=== PATIENT | female | born 1955 | race Caucasian/White ===

== ENCOUNTER 2021-02-12 09:19 | Emergency (ER) | payer MEDICARE ==
[2021-02-12] MEDS ORDERED: Eye-Stream Solution ONE (09:55)
[2021-02-12] MEDS ORDERED: TETRACAINE 0.5% STERI-UNIT SOL OP ONE (09:55)
[2021-02-12] MEDS ORDERED: Fluor-I-Strip/Ful-Flo OP ONE (09:55)
[2021-02-12] MEDS ORDERED: Eye-Stream Solution OP ONE (10:00)
[2021-02-12] MEDS ORDERED: TETRACAINE 0.5% STERI-UNIT SOL OP STA (10:00)
--- NOTE | 2021-02-12 10:20 | XRAY ---
Indication: Frontal headache and left eye pressure/lower division. Multiple contiguous axial images obtained through the head without contrast. Comparison: None Age-appropriate global atrophy and minimal periventricular degenerative micro-ischemia. No acute intracranial hemorrhage, abnormal extra-axial fluid collection, or mass effect. Fourth ventricle is midline. Terrazas-white matter differentiation preserved. Bony calvarium intact. Visualized paranasal sinuses and mastoid air cells are clear. Impression: Nonacute senile brain.
--- NOTE | 2021-02-12 10:46 | ERPHSYRPT ---
- History of Present Illness Source: patient Patient Subjective Stated Complaint: Left eye pain Triage Nursing Assessment: Patient ambulated back to ED and transferred self to bed. Patient A+O x3. Patient's skin pink, warm and dry. Patient complains of left eye pain upon waking up. Patient states her left eye is constantly throbbing pressure 3/10. Patient complains of blurred vision. Patient also complains of pain to forehead when raising her head. Left eye noted to be red. Physician History: 65 yo wf w L ocular pain upon waking up this AM. Pt denies trauma/visual impairment. She states that the pain is worse w L eye movement. Eye is mildly erythematous. She states that the eye has been "watering slightly", but she has been crying. Pt wears glasses. Timing/Duration: today Location: left eye Severity: mild Apparent Injury: no Associated Symptoms: pain, redness, eyelid swelling Visual Assistive Devices: Glasses Allergies/Adverse Reactions: codeine Allergy (Verified 02/12/21 09:29) Hx Influenza Vaccination/Date Given: Yes Hx Pneumococcal Vaccination/Date Given: No Immunizations Up to Date: Yes Travel Risk - International Travel Have you traveled outside of the country in past 3 weeks: No - Coronavirus Screening Are you exhibiting any of the following symptoms?: No Close contact with a COVID-19 positive Pt in past 14-21 Days: No - Vaccine Status Have you recieved a Covid-19 vaccination: Yes Clinical Nutritionist: Moderna - Vaccination Dates Date of 2cond Vaccination (if applicable): May 2020 - Review of Systems Constitutional: No Symptoms Ears, Nose, & Throat: No Symptoms Respiratory: No Symptoms Cardiac: No Symptoms Abdominal/Gastrointestinal: No Symptoms Genitourinary Symptoms: No Symptoms Musculoskeletal: No Symptoms Skin: No Symptoms Neurological: No Symptoms Psychological: No Symptoms Endocrine: No Symptoms Hematologic/Lymphatic: No Symptoms Immunological/Allergic: No Symptoms - Past Medical History Pertinent Past Medical History: Yes Neurological History: No Pertinent History ENT History: No Pertinent History Cardiac History: High Cholesterol, Hypertension Respiratory History: No Pertinent History Endocrine Medical History: No Pertinent History Musculoskeletal History: No Pertinent History GI Medical History: No Pertinent History History: No Pertinent History Psycho-Social History: Anxiety, Depression Female Reproductive Disorders: No Pertinent History - Past Surgical History Past Surgical History: No Neuro Surgical History: No Pertinent History Cardiac: No Pertinent History Respiratory: No Pertinent History Gastrointestinal: No Pertinent History Genitourinary: No Pertinent History Musculoskeletal: No Pertinent History Female Surgical History: No Pertinent History - Social History Smoking Status: Never smoker Exposure to second hand smoke: No Drug Use: none Patient Lives Alone: No Significant Family History: no pertinent family hx - Female History Hx Now: No - Nursing Vital Signs Nursing Vital Signs: Initial Vital Signs Temperature 97.0 F 02/12/21 09:31 Pulse Rate 53 L 02/12/21 09:31 Respiratory Rate 18 02/12/21 09:31 Blood Pressure 172/96 02/12/21 09:31 O2 Sat by Pulse Oximetry 97 02/12/21 09:31 Pain Scale Pain Intensity 3 Hypertensive - Physical Exam Vision Acuity Degree Evaluation Phase: Corrected Vision Acuity Right Eye: 20/50 Vision Acuity Left Eye: 20/50 Intraocular Pressure (Tonopen): both eyes (R eye 28-32/L eye 18-22) Eye Exam: right eye: normal inspection, left eye: erythema (Mild L), eyelid inflammation (Mild L), bilateral eye: PERRL, EOMI Ears, Nose, Throat Exam: normal ENT inspection, TMs normal, pharynx normal, moist mucous membranes Neck Exam: normal inspection, non-tender, supple, full range of motion, No meningismus, No mass, No Brudzinski, No Kernig's, No carotid bruit Respiratory Exam: normal breath sounds, lungs clear, airway intact Cardiovascular Exam: regular rate/rhythm, normal heart sounds, normal peripheral pulses, No murmur Gastrointestinal Exam: soft Extremity Exam: normal inspection, normal range of motion Neurologic: alert, oriented x 3, cooperative, normal mood/affect, sensation nml, No motor deficits, No sensory deficit Skin Exam: normal color Lymphatic: No adenopathy SpO2 Interpretation: normal SpO2: 97 O2 Delivery: Room Air Procedures - Eye Procedure Tetracaine Drops Administered: Yes Eye FB Removal: no removal w/ cotton swab, no removal w/ needle - Intraocular Pressure by Tonopen Intraocular Pressure-Right Eye (mm Hg): 28-32 Intraocular Pressure-Left Eye (mm Hg): 18-22 - CT Exams Head CT Interpretation: Discussed w/radiologist (NAD) Ordered Tests: Active Orders 24 hr Category Date Time Status HEAD WITHOUT CONTRAST [CT] Stat Exams 02/12/21 10:02 Completed Medication Summary Discontinued Medications Generic Name Dose Route Start Last Admin Trade Name Jeannine PRN Reason Stop Dose Admin Eye Irrigation Solution Confirm 02/12/21 09:55 Sodium/Potassium/Yuan/Magnesium 30 Ml Eye Wash Administered 02/12/21 09:56 Dose 30 ml .ROUTE .STK-MED ONE Fluorescein Sodium Confirm 02/12/21 09:55 Fluorescein Sodium 1 Mg/Strip Strip Administered 02/12/21 09:56 Dose 1 mg OP .STK-MED ONE Tetracaine HCl Confirm 02/12/21 09:55 Tetracaine Hcl/Pf 4 Ml Bottle Administered 02/12/21 09:56 Dose 4 ml OP .STK-MED ONE - Progress Progress Note: 02/12/21 11:04 BP decreased during stay Pt wo focal weakness 02/12/21 21:[address] Rooney 02/15/21 at 17:00 Counseled pt/family regarding: diagnosis, need for follow-up, rad results - Departure Departure Disposition: Home Clinical Impression: Ocular pain, left eye Condition: Stable Critical Care Time: No Referrals: DOCTOR,NO FAMILY [Primary Care Provider] - Additional Instructions: Follow up with Dr. Rooney on 02/15/21 5:00PM Ciloxin 2 drops left eye every 4 hours for 5 days Return to ER for increasing pain Prescriptions: Ciprofloxacin HCl [Ciloxan] 2 drops OP Q4H #2.5 ml
[2021-02-12 11:27] VITALS: BP 106/63; PULSE 68
[2021-02-12 21:04] VITALS: O2SAT 97
== END 2021-02-12 11:26 | disposition home or self-care (01) ==
LOC: ED 09:19
DX: H57.12 Ocular pain, left eye (principal)
CPT/HCPCS: 70450; 99283; A9270-GY

== ENCOUNTER 2024-01-18 13:03 | Emergency (ER) | payer MEDICARE ==
--- NOTE | 2024-01-18 13:09 | ERPHSYRPT ---
- History of Present Illness Time Seen by Provider: 01/18/24 13:08 Source: patient, EMS Exam Limitations: no limitations Physician History: This is a 68-year-old white female patient who arrives by private vehicle and was traveling in [place] and on her way home from [place] there was some type of escalator that was crowded and there was a lot of pushing and this patient actually fell backwards on the escalator hitting her head. Again, this occurred 2 days ago. She did not lose consciousness. She does have bruising to her scalp without lacerations. She has generalized mild aches and pains with a few sites on her bilateral upper extremities bruising and the right flank bruising. She has no chest pain. She has no shortness of breath. She has no abdominal pain. She has not used Tylenol or ibuprofen. She states her pain is not that bad. She only wanted to have a CAT scan of her head performed because she does feel a little bit as though she is in a fog. Patient is not on any anticoagulation therapy. She does have a history of anxiety/depression, hypothyroidism and hyperlipidemia. Patient has no neck pain and has no vertebral pain on her spine. She is moving all her extremities Occurred: days ago (2) Reason for Fall: fell from standing pos Injuries/Pain Location: head, upper extremity Loss of Consciousness: no loss of consciousness Severity of Pain-Max: mild Severity of Pain-Current: mild Associated Symptoms (Fall): other (This is though she is in a mild fog), No abdominal pain, No back pain, No chest pain, No neck pain, No seizures, No shortness of breath, No slurred speech, No trouble walking, No vomiting Allergies/Adverse Reactions: codeine Allergy (Verified 02/12/21 09:29) Home Medications: Citalopram Hydrobromide [Celexa] 40 mg PO DAILY 01/18/24 [History] Levothyroxine Sodium [Levoxyl] 125 mcg PO DAILY 01/18/24 [History] Simvastatin 20Mg [Zocor 20Mg] 20 mg PO DAILY 01/18/24 [History] clonazePAM [Clonazepam] 0.5 mg PO DAILY 01/18/24 [History] Hx Influenza Vaccination/Date Given: Yes Hx Pneumococcal Vaccination/Date Given: No Travel Risk - International Travel Have you traveled outside of the country in past 3 weeks: No - Emerging Infectious Disease Are you exhibiting symptoms associated with any current EIDs: No - Review of Systems Constitutional: No Symptoms Eyes: No Symptoms Ears, Nose, & Throat: No Symptoms Respiratory: No Symptoms Cardiac: No Symptoms Abdominal/Gastrointestinal: No Symptoms Genitourinary Symptoms: No Symptoms Musculoskeletal: Fall Skin: Other (Ecchymosis left upper extremity and right lower back area) Neurological: Other (No significant headache. Feels as though she is in a fog), No Dizziness Psychological: No Symptoms Endocrine: No Symptoms Hematologic/Lymphatic: No Symptoms Immunological/Allergic: No Symptoms All Other Systems: Reviewed and Negative - Past Medical History Pertinent Past Medical History: Yes Neurological History: No Pertinent History ENT History: No Pertinent History Cardiac History: High Cholesterol, Hypertension Respiratory History: No Pertinent History Endocrine Medical History: No Pertinent History Musculoskeletal History: No Pertinent History GI Medical History: No Pertinent History History: No Pertinent History Psycho-Social History: Anxiety, Depression Female Reproductive Disorders: No Pertinent History - Past Surgical History Past Surgical History: No Neuro Surgical History: No Pertinent History Cardiac: No Pertinent History Respiratory: No Pertinent History Gastrointestinal: No Pertinent History Genitourinary: No Pertinent History Musculoskeletal: No Pertinent History Female Surgical History: No Pertinent History Significant Family History: no pertinent family hx - Social History Smoking Status: Never smoker Exposure to second hand smoke: No Drug Use: none Patient Lives Alone: No - Nursing Vital Signs Nursing Vital Signs: Initial Vital Signs Temperature 98.2 F 01/18/24 13:12 Pulse Rate 56 L 01/18/24 13:12 Respiratory Rate 18 01/18/24 13:12 Blood Pressure 140/66 01/18/24 13:12 O2 Sat by Pulse Oximetry 99 01/18/24 13:12 Pain Scale Pain Intensity 0 - Elda Coma Score Best Eye Response (Elda): (4) open spontaneously Best Verbal Response (Elda): (5) oriented Best Motor Response ([place]): (6) obeys commands Elda Total: 15 - Physical Exam General Appearance: no apparent distress, alert, anxiety Head Injury: contusions (Multiple sites of tenderness on the patient's scalp without lacerations) Eye Exam: PERRL/EOMI, eyes nml inspection ENT Exam: airway nml, nml ext.inspection, No evidence of ENT injury, No dental injury Neck Exam: supple, trachea midline, full range of motion, normal alignment, normal inspection, No pain on movement of neck Respiratory/Chest Exam: normal breath sounds, No chest tenderness, No respiratory distress, No ecchymosis, No crepitus Cardiovascular Exam: normal heart sounds, regular rate/rhythm Gastrointestinal Exam: soft, normal bowel sounds, No tenderness Rectal Exam: not done Back Exam: other (Mild right skin lower ecchymosis. Lower than flank), No CVA tenderness, No vertebral tenderness Extremity Exam: normal range of motion, other (Ecchymosis volar aspect left forearm), No tenderness Neurologic Exam: alert, oriented x 3, cooperative, keycase assembler II-XII nml as tested, normal mood/affect, nml cerebellar function, nml station & gait, sensation nml Skin Exam: ecchymosis (See above description) SpO2 Interpretation: normal O2 Delivery: Room Air - Course Nursing assessment & vital signs reviewed: Yes Ordered Tests: Active Orders 24 hr Category Date Time Status HEAD WITHOUT CONTRAST [CT] Stat Exams 01/18/24 13:24 Completed - Progress Progress: unchanged Progress Note: 01/18/24 14:26 My medical decision making and the assignment of low complexity to this patient's medical issue today is based on review of the patient's past medical history, review the patient's medication list, review the patient drug allergy list, history present illness and physical findings on examination. The workup in this patient includes CT scan of the head without contrast. The patient is r efusing any other type of radiographic studies. She was asked several times. 01/18/24 14:[address] scan of the head without contrast was interpreted by the radiologist and I reviewed the impression. The impression states continued nonacute senile brain without contrast. Counseled pt/family regarding: diagnosis, need for follow-up, rad results Medical Desision Making - Diagnostic Testing Diagnostic test were ordered, analyzed, and reviewed by me: Yes Radiological Interpretation: Reviewed by me, Teleradiologist Report - Risk of complications Low Risk: Low risk of morbidity from additional dx testing or treatment - Departure Departure Disposition: Home Clinical Impression: Head injury Condition: Stable Critical Care Time: No Referrals: FLAVIA HARTMAN [Primary Care Provider] - Follow up/PCP as directed Additional Instructions: Drink plenty of fluids. Avoid any blood thinning medication. Avoid sedating medication for 24 hours. If there are no contraindications, use Tylenol and ibuprofen for pain control. Call your primary care provider tomorrow, 01/19/2024, to make arrangements for follow-up appointment for further evaluation management.
[2024-01-18 13:18] VITALS: RESP 18; TEMP 98.2
--- NOTE | 2024-01-18 14:23 | XRAY ---
Indication: Status post fall. Head injury. Altered mental status. Multiple contiguous axial images obtained through the head without contrast. Comparison: February 12, 2021 Again age-appropriate global atrophy and minimal periventricular degenerative micro-ischemia bilaterally. No acute intracranial hemorrhage, abnormal extra-axial fluid collection, or mass effect. Fourth ventricle is midline without hydrocephalus. Terrazas-white matter differentiation preserved. Bony calvarium intact. Visualized paranasal sinuses and mastoid air cells are clear. Impression: Continued nonacute senile brain.
[2024-01-18 14:39] VITALS: BP 112/43; PULSE 49; O2SAT 98
== END 2024-01-18 14:57 | disposition home or self-care (01) ==
LOC: ED 13:03
DX: S09.90XA Unspecified injury of head, initial encounter (principal); W10.0XXA Fall (on)(from) escalator, initial encounter; E78.5 Hyperlipidemia, unspecified; I10 Essential (primary) hypertension; Z79.899 Other long term (current) drug therapy
CPT/HCPCS: 70450; 99283

== ENCOUNTER 2025-01-17 11:39 | Emergency (ER) | payer MEDICARE ==
[2025-01-17 11:50] VITALS: TEMP 95.4
--- NOTE | 2025-01-17 12:08 | ERPHSYRPT ---
- History of Present Illness Patient Subjective Stated Complaint: weakness, nausea, and dizzyness Triage Nursing Assessment: Patient was brought into the ED by her , she says shes been having nausea, dizzyness and weakness. She is alert and oriented x4, able to ambualte by self with assistance. skin warm dry and intact. Lung sounds clear, pulses equal bilateral radius. she says shes been extremely nausea and weak and at times gets short of breath for a few days now. Physician History: Transported via EMS from home, patient been sick over the last several days, she had nausea and vomiting and abdominal cramping, she has not any exposure to anyone else was been ill Timing/Duration: day(s) (2) Quality: cramping Abdominal Pain Onset Location: generalized abdomen Pain Radiation: no radiation Severity of Pain-Max: moderate Severity of Pain-Current: moderate Modifying Factors: Improves With: nothing Associated Symptoms: nausea, shortness of breath, vomiting Allergies/Adverse Reactions: codeine Allergy (Verified 01/17/25 11:59) Home Medications: Citalopram Hydrobromide [Celexa] 40 mg PO DAILY 01/18/24 [History] Levothyroxine Sodium [Levoxyl] 125 mcg PO DAILY 01/18/24 [History] Simvastatin 20Mg [Zocor 20Mg] 20 mg PO DAILY 01/18/24 [History] clonazePAM [Clonazepam] 0.5 mg PO DAILY 01/18/24 [History] Hx Tetanus, Diphtheria Vaccination/Date Given: No Hx Influenza Vaccination/Date Given: Yes Hx Pneumococcal Vaccination/Date Given: No Immunizations Up to Date: Yes Travel Risk - International Travel Have you traveled outside of the country in past 3 weeks: No - Emerging Infectious Disease Are you exhibiting symptoms associated with any current EIDs: No - Past Medical History Pertinent Past Medical History: Yes Neurological History: No Pertinent History ENT History: No Pertinent History Cardiac History: High Cholesterol, Hypertension Respiratory History: No Pertinent History Endocrine Medical History: No Pertinent History Musculoskeletal History: No Pertinent History GI Medical History: No Pertinent History History: No Pertinent History Psycho-Social History: Anxiety, Depression Female Reproductive Disorders: No Pertinent History - Past Surgical History Past Surgical History: No Neuro Surgical History: No Pertinent History Cardiac: No Pertinent History Respiratory: No Pertinent History Gastrointestinal: No Pertinent History Genitourinary: No Pertinent History Musculoskeletal: No Pertinent History Female Surgical History: No Pertinent History Significant Family History: no pertinent family hx - Social History Smoking Status: Never smoker Exposure to second hand smoke: No Drug Use: none - Social Determinants of Health Will the patient participate in the screening: Yes Do you worry about a steady place to live?: No Do you have any problems with any of the following?: No known problems In the past 12 months,have you had to go without utilities?: No Transportation Issues: No Has anyone in your support network made you feel unsafe?: No Have you or anyone in your house had to go w/o enough food: No - Nursing Vital Signs Nursing Vital Signs: Initial Vital Signs O2 Sat by Pulse Oximetry 99 01/17/25 11:47 Pain Scale Pain Intensity 0 - Physical Exam General Appearance: no apparent distress, alert Eye Exam: PERRL/EOMI, eyes nml inspection Ears, Nose, Throat Exam: normal ENT inspection, pharynx normal, moist mucous membranes Neck Exam: normal inspection, non-tender, supple, full range of motion Respiratory Exam: normal breath sounds, chest tenderness, lungs clear Cardiovascular Exam: regular rate/rhythm, normal heart sounds Gastrointestinal/Abdomen Exam: soft, normal bowel sounds Back Exam: normal inspection, normal range of motion Extremity Exam: normal inspection, normal range of motion Neurologic Exam: alert, oriented x 3, cooperative, email marketing manager II-XII nml as tested, normal mood/affect Skin Exam: normal color, warm, dry SpO2 Interpretation: normal SpO2: 99 Ordered Tests: Active Orders 24 hr Category Date Time Status EKG-ER Only STAT Care 01/17/25 11:59 Active IV Insertion STAT Care 01/17/25 11:59 Active ABDOMEN AND PELVIS W CONTRAST [CT] Stat Exams 01/17/25 13:43 Completed CHEST 1 VIEW (PORTABLE) Stat Exams 01/17/25 12:03 Completed CBC W DIFF Stat Lab 01/17/25 12:00 Completed CMP Stat Lab 01/17/25 12:00 Completed CULTURE,URINE Stat Lab 01/17/25 16:22 Received Lactic Acid Stat Lab 01/17/25 12:14 Completed Lactic Acid Stat Lab 01/17/25 14:19 Completed UA W/RFX UR CULTURE Stat Lab 01/17/25 16:22 Completed Medication Summary Discontinued Medications Generic Name Dose Route Start Last Admin Trade Name Freq PRN Reason Stop Dose Admin Droperidol 1.25 mg 01/17/25 13:30 01/17/25 13:35 Droperidol 5 Mg/2 Ml Vial IV 01/17/25 13:31 1.25 mg STAT ONE Administration Droperidol Confirm 01/17/25 13:32 Droperidol 5 Mg/2 Ml Vial Administered 01/17/25 13:33 Dose 5 mg .ROUTE .STK-MED ONE Sodium Chloride 1,000 mls @ 999 mls/hr 01/17/25 11:59 01/17/25 13:30 Sodium Chloride 0.9% 1000 Ml IV 01/17/25 12:59 Infused .Q1H1M STA Infusion Sodium Chloride Confirm 01/17/25 12:20 Sodium Chloride 0.9% 1000 Ml Administered 01/17/25 12:21 Dose 1,000 mls @ ud .ROUTE .STK-MED ONE Lorazepam 0.5 mg 01/17/25 16:10 01/17/25 17:29 Lorazepam 2 Mg/1 Ml 2 Mg Vial IV 01/17/25 16:11 0.5 mg STAT ONE Administration Lorazepam 0.5 mg 01/17/25 17:00 01/17/25 17:31 Lorazepam 20 Mg/10 Ml Mdv 2 Mg/Ml For Single Doses IV 01/17/25 17:01 Not Given STAT ONE Lorazepam Confirm 01/17/25 17:27 Lorazepam 20 Mg/10 Ml Mdv 2 Mg/Ml For Single Doses Administered 01/17/25 17:28 Dose 20 mg .ROUTE .STK-MED ONE Midazolam HCl 1 mg 01/17/25 17:26 01/17/25 17:32 Midazolam Hcl 2 Mg/2 Ml Vial IV 01/17/25 17:27 Not Given 1XONLY ONE Prochlorperazine Edisylate 5 mg 01/17/25 11:59 01/17/25 12:23 Prochlorperazine Edisylate 10 Mg/2 Ml Vial IV 01/17/25 12:00 5 mg STAT ONE Administration Prochlorperazine Edisylate Confirm 01/17/25 12:20 Prochlorperazine Edisylate 10 Mg/2 Ml Vial Administered 01/17/25 12:21 Dose 10 mg .ROUTE .STK-MED ONE Lab/Rad Data: Laboratory Result Diagrams 01/17/25 12:00 01/17/25 12:00 Laboratory Results 01/17/25 01/17/25 01/17/25 Range/Units 16:22 14:19 12:14 WBC (3.98-10.04) x10^3/uL RBC (3.93-5.22) x10^6/uL Hgb (11.2-15.7) g/dL Hct (34.1-44.9) % MCV (79.4-94.8) fL MCH (25.6-32.2) pg MCHC (32.2-35.5) g/dL RDW (11.7-14.4) % Plt Count (182-369) x10^3/uL MPV (9.4-12.3) fL Gran % (34.0-71.1) % Immature Gran % (Auto) (0.001-0.429) % Nucleat RBC Rel Count (0.00-0.2) % Eos # (Auto) (0.04-0.36) x10^3/uL Immature Gran # (Auto) (0.001-0.031) x10^3u/L Absolute Lymphs (auto) (1.18-3.74) x10^3/uL Absolute Monos (auto) (0.24-0.86) x10^3/uL Absolute Nucleated RBC (0.00-0.012) x10^3u/L Lymphocytes % (19.3-51.7) % Monocytes % (4.7-12.5) % Eosinophils % (0.7-5.8) % Basophils % (0.1-1.2) % Absolute Granulocytes (1.56-6.13) x10^3/uL Basophils # (0.01-0.08) x10^3/uL Sodium (135-145) mmol/L Potassium (3.5-5.1) mmol/L Chloride (98-107) mmol/L Carbon Dioxide (22-30) mmol/L Anion Gap (5-15) MEQ/L BUN (7-17) mg/dL Creatinine (0.52-1.04) mg/dL Estimated GFR ML/MIN Glucose (74-106) mg/dL Lactic Acid 2.1 H 3.0 H (0.4-2.0) Calcium (8.4-10.2) mg/dL Total Bilirubin (0.2-1.3) mg/dL AST (14-36) U/L ALT (0-35) U/L Alkaline Phosphatase (38-126) U/L Serum Total Protein (6.3-8.2) g/dL Albumin (3.5-5.0) g/dL Urine Color Yellow (Yellow) Urine Appearance Clear (Clear) Urine pH 6.0 (4.6-8.0) Ur Specific Festus >=1.030 A (1.005-1.030) Urine Protein Trace A (Negative) Urine Glucose (UA) Negative (Negative) mg/dL Urine Ketones 15 A (Negative) Urine Blood Small A (Negative) Urine Nitrite Negative (Negative) Urine Bilirubin Negative (Negative) Urine Urobilinogen 1.0 A (0.2) mg/dL Ur Leukocyte Esterase Negative (Negative) U Hyaline Cast (Auto) NONE SEEN (0-2) /LPF Urine Microscopic RBC 6-10 A (0-5) /HPF Urine Microscopic WBC 0-2 (0-5) /HPF Ur Epithelial Cells None Seen (None Seen) /HPF Urine Bacteria None Seen (None Seen) /HPF Urine Culture Reflexed YES (NO) 01/17/25 01/17/25 Range/Units 12:00 12:00 WBC 6.5 (3.98-10.04) x10^3/uL RBC 4.05 (3.93-5.22) x10^6/uL Hgb 12.3 (11.2-15.7) g/dL Hct 37.3 (34.1-44.9) % MCV 92.1 (79.4-94.8) fL MCH 30.4 (25.6-32.2) pg MCHC 33.0 (32.2-35.5) g/dL RDW 14.3 (11.7-14.4) % Plt Count 170 L (182-369) x10^3/uL MPV 10.5 (9.4-12.3) fL Gran % 77.1 H (34.0-71.1) % Immature Gran % (Auto) 0.3 (0.001-0.429) % Nucleat RBC Rel Count 0.0 (0.00-0.2) % Eos # (Auto) 0.03 L (0.04-0.36) x10^3/uL Immature Gran # (Auto) 0.02 (0.001-0.031) x10^3u/L Absolute Lymphs (auto) 1.18 (1.18-3.74) x10^3/uL Absolute Monos (auto) 0.22 L (0.24-0.86) x10^3/uL Absolute Nucleated RBC 0.00 (0.00-0.012) x10^3u/L Lymphocytes % 18.2 L (19.3-51.7) % Monocytes % 3.4 L (4.7-12.5) % Eosinophils % 0.5 L (0.7-5.8) % Basophils % 0.5 (0.1-1.2) % Absolute Granulocytes 5.01 (1.56-6.13) x10^3/uL Basophils # 0.03 (0.01-0.08) x10^3/uL Sodium 140 (135-145) mmol/L Potassium 3.6 (3.5-5.1) mmol/L Chloride 105 (98-107) mmol/L Carbon Dioxide 22 (22-30) mmol/L Anion Gap 16.7 H (5-15) MEQ/L BUN 15 (7-17) mg/dL Creatinine 1.10 H (0.52-1.04) mg/dL Estimated GFR 54.1 ML/MIN Glucose 177 H (74-106) mg/dL Lactic Acid (0.4-2.0) Calcium 9.6 (8.4-10.2) mg/dL Total Bilirubin 0.50 (0.2-1.3) mg/dL AST 29 (14-36) U/L ALT 22 (0-35) U/L Alkaline Phosphatase 99 (38-126) U/L Serum Total Protein 7.5 (6.3-8.2) g/dL Albumin 4.6 (3.5-5.0) g/dL Urine Color (Yellow) Urine Appearance (Clear) Urine pH (4.6-8.0) Ur Specific Festus (1.005-1.030) Urine Protein (Negative) Urine Glucose (UA) (Negative) mg/dL Urine Ketones (Negative) Urine Blood (Negative) Urine Nitrite (Negative) Urine Bilirubin (Negative) Urine Urobilinogen (0.2) mg/dL Ur Leukocyte Esterase (Negative) U Hyaline Cast (Auto) (0-2) /LPF Urine Microscopic RBC (0-5) /HPF Urine Microscopic WBC (0-5) /HPF Ur Epithelial Cells (None Seen) /HPF Urine Bacteria (None Seen) /HPF Urine Culture Reflexed (NO) - Progress Progress: improved Progress Note: 01/17/25 13:44 Persistent vomiting, Chest x-ray reviewed by me had revealed no acute infiltrate, add CT abdomen/pelvis 01/17/25 18:[address] results, patient received Versed, Nausea is resolved clinically she is improved and is requesting discharge, she had several episodes where her oxygen desaturation below 90% but she was sleeping when she was aroused, While awake her oxygenation is in the mid 90s,He was able to get up and walk around without any difficulty, should be discharged. Clinical diet over the next 24 hours, Zofran as an antiemetic - Departure Departure Disposition: Home Clinical Impression: Nausea and vomiting Qualifiers: Vomiting type: unspecified Qualified Code(s): R11.2 - Nausea with vomiting, unspecified Condition: Stable Critical Care Time: No Referrals: SAVANNA CARRERA MD [Primary Care Provider, INTERNAL MEDICINE] - Follow up with PCP 4 days Prescriptions: Ondansetron ODT 4 MG [Zofran Odt 4 mg] 4 mg PO Q6H PRN PRN #10 tablet PRN Reason: Vomiting
[2025-01-17 12:16] LABS: BASOPHIL % 0.5 % (0.1-1.2); Basophil (Absolute #) 0.03 x10^3/uL (0.01-0.08); Eosinophil (Absolute #) 0.03 x10^3/uL (0.04-0.36); Hematocrit 37.3 % (34.1-44.9); Hemoglobin 12.3 g/dL (11.2-15.7); IMMATURE GRAN # 0.02 x10^3u/L (0.001-0.031); IMMATURE GRAN % 0.3 % (0.001-0.429); Lymphocyte (Absolute #) 1.18 x10^3/uL (1.18-3.74); Mean Corpuscular Hemoglobin 30.4 pg (25.6-32.2); Mean Corpuscular Hgb Concent. 33.0 g/dL (32.2-35.5); Monocyte (Absolute #) 0.22 x10^3/uL (0.24-0.86); NUCLEATED RBC # 0.00 x10^3u/L (0.00-0.012); NUCLEATED RBC % 0.0 % (0.00-0.2); Platelet Count 170 x10^3/uL (182-369); Red Blood Count 4.05 x10^6/uL (3.93-5.22); White Blood Count 6.5 x10^3/uL (3.98-10.04)
[2025-01-17] MEDS ORDERED: Compazine 10 MG/2 ML ONE (12:20)
[2025-01-17] MEDS: Compazine 10 MG/2 ML IV ONE (12:23)
[2025-01-17 12:33] LABS: Calcium 9.6 mg/dL (8.4-10.2); Carbon Dioxide 22.0 mmol/L (22-30); Creatinine 1 1.1 mg/dL (0.52-1.04); EST GLOMERULAR FILTRATION RATE 54.1 ML/MIN; Glucose 177.0 mg/dL (74-106); Potassium 3.6 mmol/L (3.5-5.1); SGOT/AST 29.0 U/L (14-36); SGPT/ALT 22.0 U/L (0-35); Total Protein 7.5 g/dL (6.3-8.2)
--- NOTE | 2025-01-17 12:45 | XRAY ---
CLINICAL HISTORY: sob COMPARISON: No prior studies are available for comparison. TECHNIQUE: X-ray images of the chest were obtained in AP projection. FINDINGS: Pulmonary Parenchyma: A reticular pattern is seen in the bilateral lower and left mid lung zones, and may represent interstitial changes. There is some crowding of the ribs on the left side. A round calcified nodule is seen at the right lower lung zone, measuring 6.3 mm. There is no evidence of pleural effusion or pleural thickening. Heart and Mediastinum: The heart size is enlarged. An ectatic aorta is seen, with atherosclerotic calcification. There is no mediastinal widening, and no masses are present. There is no hilar or mediastinal lymphadenopathy. Bony Thorax: The bony thorax appears intact without fractures or deformities. Soft Tissues: The soft tissues overlying the chest wall are unremarkable. IMPRESSION: 1. A reticular pattern is seen in the bilateral lower and left mid lung zones, and may represent interstitial changes. Further clinical evaluation is recommended. 2. There is some crowding of the ribs on the left side. 3. Cardiomegaly is present. 4. A round calcified nodule is seen at the right lower lung zone. Electronically Signed by: Orlando Parnell MD. (01/17/2025 12:43:48 EDT)
[2025-01-17] MEDS ORDERED: Inapsine 5 MG/2 ML ONE (13:32)
[2025-01-17] MEDS: Inapsine 5 MG/2 ML IV ONE (13:35)
--- NOTE | 2025-01-17 16:09 | XRAY ---
CLINICAL HISTORY: abd pain COMPARISON: CR 29- TECHNIQUE: CT of the abdomen and pelvis was performed with contrast using the following protocol: axial images were obtained with reconstructed coronal and sagittal images. One of the following dose-reduction techniques was utilized for this exam: automated exposure control, adjustment of the mA and/or kV according to patient size, and the use of iterative reconstruction. FINDINGS: Abdomen: Liver: The liver is normal in size, shape, and density. No focal lesions, cysts, or masses were identified. Hepatic vasculature and biliary ducts are unremarkable. Gallbladder and Biliary System: Status post cholecystectomy. The common bile duct is normal in caliber without dilation. Pancreas: The pancreatic head, body, and tail are visualized and appear normal in size and density. No pancreatic masses or calcifications were noted. The pancreatic duct is not dilated. Spleen: The spleen is normal in size, shape, and density. There are multiple small scattered calcific foci, likely sequelae of old granulomatous infection. No splenic lesions or masses were identified. Kidneys and Adrenal Glands: Both kidneys are normal in size, shape, and position. There are bilateral small simple renal cortical cysts. Cortical thickness is within normal limits. No renal calculi or hydronephrosis are identified. The adrenal glands are unremarkable, with no evidence of masses or hyperplasia. Pelvis: Urinary Bladder: The urinary bladder is normal in contour and wall thickness. No intraluminal lesions are identified. Uterus: The uterus is not visualized. Bowel: The visualized bowel loops are normal in caliber and appearance. There is no evidence of bowel obstruction or wall thickening. A small sliding hiatus hernia is present. There is no CT evidence of acute appendicitis. The colon and rectum are distended by fecal matter. A small calcific peritoneal nodule is seen at the hepatic dome, measuring 8 mm, a sequela of old granulomatous infection. Aorto-iliac atherosclerotic calcifications are present. Bones and Soft Tissues: The pelvic bones and soft tissues are unremarkable. No fractures or abnormal masses were identified. There is lumbar spondylosis. There is mild bilateral hip osteoarthritis. Lower chest cuts: A right lower lobar calcific focus and right hilar calcific lymph nodes are noted, sequelae of old granulomatous infection. IMPRESSION: 1. There is no evidence of acute intra-abdominal pathology. 2. There is a small sliding hiatus hernia. 3. There are bilateral small simple renal cortical cysts. 4. The colon and rectum are distended by fecal matter. 5. The previous X-ray was reviewed. Electronically Signed by: Orlando Parnell MD. (01/17/2025 16:08:32 EDT)
[2025-01-17] MEDS ORDERED: ATIVAN 2 MG/ML MDV FOR SINGLE DOSES ONE (17:27)
[2025-01-17] MEDS: Ativan 2 MG/1 ML VIAL IV ONE (17:29)
[2025-01-17] MEDS: ATIVAN 2 MG/ML MDV FOR SINGLE DOSES IV ONE (17:31)
[2025-01-17] MEDS: Versed 2 MG/2 ML Injection IV ONE (17:32)
[2025-01-17 17:41] LABS: Glucose, Urine Negative (Negative); Protein,Urine Dip Trace (Negative)
[2025-01-17 17:50] LABS: WBC 0-2 /HPF (0-5)
[2025-01-17 18:10] VITALS: BP 106/66
[2025-01-17 18:35] VITALS: O2SAT 99
[2025-01-17 18:37] VITALS: PULSE 97; RESP 30
== END 2025-01-17 18:42 | disposition home or self-care (01) ==
LOC: ED 11:39
DX: R11.2 Nausea with vomiting, unspecified (principal); R10.9 Unspecified abdominal pain; I10 Essential (primary) hypertension; Z79.899 Other long term (current) drug therapy